=== PATIENT | male | born 1980 | race Caucasian/White ===

== ENCOUNTER 2018-11-29 18:07 | Emergency (ER) | payer OTHER ==
[~2018-11-29] VITALS: Ht 180.3 cm; Wt 75.3 kg
[~2018-11-29 18:07] MED LIST: ACETAMINOPHEN-1 EAC1 PO; ATIVAN1 MG PO; CIPROFLOXACIN500 M1 PO; CLEOCIN HCL150 MG PO; CLONAZEPAM 1 MG1 M1 PO; LATUDA40 MG; NEURONTIN 300300 M1 PO; PERCOCET 10-321 EACH PO; PROZAC20 MG PO; PYRIDIUM200 MG PO; ROBAXIN500 MG PO
[2018-11-29 18:42] VITALS: BP 155/92
== END 2018-11-29 18:44 | disposition left against medical advice (07) ==
LOC: M.ERS 18:07
DX: R55 Syncope and collapse (principal); I10 Essential (primary) hypertension; F31.9 Bipolar disorder, unspecified; K58.9 Irritable bowel syndrome, unspecified; F17.210 Nicotine dependence, cigarettes, uncomplicated; Z88.1 Allergy status to other antibiotic agents

== ENCOUNTER 2019-12-09 15:54 | Emergency (ER) | payer OTHER ==
[~2019-12-09] VITALS: Ht 180.3 cm; Wt 81.7 kg
[2019-12-09] MEDS ORDERED: DOXYCYCLINE 10100 MG PO (16:50)
[2019-12-09] MEDS ORDERED: NORCO 5-325 TA1 EAC2 PO (16:50)
[2019-12-09] MEDS ORDERED: IBUPROFEN 800800 M1 PO (16:50)
[2019-12-09 17:06] VITALS: BP 164/74
== END 2019-12-09 17:07 | disposition home or self-care (01) ==
LOC: M.ERS 15:54
DX: L02.414 Cutaneous abscess of left upper limb (principal); K58.9 Irritable bowel syndrome, unspecified; I10 Essential (primary) hypertension; F17.210 Nicotine dependence, cigarettes, uncomplicated; Z88.1 Allergy status to other antibiotic agents